=== PATIENT | male | born 1930 | race Caucasian/White ===

== ENCOUNTER 2016-06-17 09:20 | Outpatient (CLI) | payer MEDICARE, OTHER | END 2016-06-17 09:21 | disposition home or self-care (01) | DX: C61 Malignant neoplasm of prostate (principal) ==

== ENCOUNTER 2016-07-15 09:47 | Outpatient (CLI) | payer MEDICARE, OTHER | END 2016-07-15 09:48 | disposition home or self-care (01) | DX: C61 Malignant neoplasm of prostate (principal) ==

== ENCOUNTER 2016-08-29 10:46 | Outpatient (CLI) | payer MEDICARE, OTHER | END 2016-08-29 10:47 | disposition home or self-care (01) | LOC: LAB.WCP 10:46 | PROVIDERS: ATTEND Urology | DX: C61 Malignant neoplasm of prostate (principal) | CPT/HCPCS: 36415; 84153 ==

== ENCOUNTER 2016-09-28 08:00 | Outpatient (CLI) | payer MEDICARE, OTHER | END 2016-09-28 23:59 | LOC: LAB.WCP 08:00 | PROVIDERS: ATTEND Urology | DX: C61 Malignant neoplasm of prostate (principal) | CPT/HCPCS: 36415; 84153 ==

== ENCOUNTER 2017-01-04 08:00 | Outpatient (CLI) | payer MEDICARE, OTHER | END 2017-01-04 08:01 | disposition home or self-care (01) | LOC: LAB.WCP 08:00 | PROVIDERS: ATTEND Urology | DX: C61 Malignant neoplasm of prostate (principal) | CPT/HCPCS: 36415; 84153 ==

== ENCOUNTER 2017-04-06 10:24 | Outpatient (CLI) | payer MEDICARE, OTHER ==
[2017-04-06 13:57] LABS: BASOPHILS # (AUTO) 0.1 10^3/uL (0.0-0.1); BASOPHILS % (AUTO) 0.9 %; EOSINOPHILS # (AUTO) 0.2 10^3/uL (0.0-0.7); HCT - HEMATOCRIT 40.3 % (42.0-52.0); HGB - HEMOGLOBIN 13.5 g/dL (14.0-18.0); LYMPHOCYTES % (AUTO) 18.4 %; MEAN CORPUSCULAR HGB CONC 33.6 g/dL (32.0-36.0); MEAN CORPUSCULAR VOLUME 95.3 fL (80.0-94.0); MEAN PLATELET VOLUME 9.7 fL (7.4-11.4); MONOCYTES # (AUTO) 0.6 10^3/uL (0.0-1.0); NEUTROPHILS # (AUTO) 3.8 10^3/uL (1.5-6.6); NEUTROPHILS % (AUTO) 67.7 %; NUCLEATED RED BLOOD CELLS AUTO 0.1 /100WBC; RED BLOOD COUNT 4.22 10^6/uL (4.70-6.10); RED CELL DISTRIBUTION WIDTH 14.2 % (12.0-15.0); UNCORRECTED WHITE BLOOD COUNT 5.7 x10^3/uL; WHITE BLOOD COUNT 5.7 x10^3/uL (4.8-10.8)
[2017-04-06 14:39] LABS: BILIRUBIN,TOTAL 0.6 mg/dL (0.2-1.0); BUN - BLOOD UREA NITROGEN 26 mg/dL (6-20); CARBON DIOXIDE - CO2 30 mmol/L (21-32); CHLORIDE 101 mmol/L (101-111); CHOL/HDL RATIO 1.8 (<5.0); CHOLESTEROL 148 mg/dL; CREATININE 0.8 mg/dL (0.6-1.2); GFR - MDRD 92 (>89); GLUCOSE 108 mg/dL (70-100); HDL CHOLESTEROL 81 mg/dL; LDL/HDL RATIO 0.7 (<3.6); POTASSIUM 4.3 mmol/L (3.5-5.0); SODIUM 139 mmol/L (135-145); TOTAL PROTEIN 8.5 g/dL (6.7-8.2); TRIGLYCERIDES 45 mg/dL; VLDL CHOLESTEROL 9 mg/dL
== END 2017-04-06 10:25 | disposition home or self-care (01) ==
LOC: LAB.WCP 10:24
PROVIDERS: ATTEND Family Medicine
DX: I51.7 Cardiomegaly (principal); I10 Essential (primary) hypertension; C61 Malignant neoplasm of prostate; I48.0 Paroxysmal atrial fibrillation; R73.9 Hyperglycemia, unspecified; E78.5 Hyperlipidemia, unspecified
CPT/HCPCS: 36415; 80053; 80061; 84153; 84443; 85025

== ENCOUNTER 2017-06-29 08:00 | Outpatient (CLI) | payer MEDICARE, OTHER | END 2017-06-29 08:01 | disposition home or self-care (01) | LOC: LAB.WCP 08:00 | PROVIDERS: ATTEND Urology | DX: Z12.5 Encounter for screening for malignant neoplasm of prostate (principal); C61 Malignant neoplasm of prostate | CPT/HCPCS: 36415; G0103; 84153 ==

== ENCOUNTER 2017-09-22 14:12 | Outpatient (CLI) | payer MEDICARE, OTHER | END 2017-09-22 14:13 | disposition home or self-care (01) | LOC: LAB 14:12 | PROVIDERS: ATTEND Family Medicine | DX: I50.9 Heart failure, unspecified (principal) | CPT/HCPCS: 36415; 83880 ==

== ENCOUNTER 2017-10-11 08:36 | Outpatient (CLI) | payer MEDICARE, OTHER | END 2017-10-11 08:37 | disposition home or self-care (01) | LOC: LAB 08:36 | PROVIDERS: ATTEND Family Medicine | DX: J44.1 Chronic obstructive pulmonary disease with (acute) exacerbation (principal); I50.9 Heart failure, unspecified; I48.0 Paroxysmal atrial fibrillation; I10 Essential (primary) hypertension; R73.9 Hyperglycemia, unspecified; E78.5 Hyperlipidemia, unspecified | CPT/HCPCS: 85610 ==

== ENCOUNTER 2017-10-25 08:00 | Outpatient (CLI) | payer MEDICARE, OTHER ==
[2017-10-25 19:33] LABS: HB2 TOTAL 13.9 g/dL; HEMOGLOBIN A1C 0.55 g/dL; HEMOGLOBIN A1C % 5.8 % (4.6-6.2)
[2017-10-25 19:38] LABS: ALBUMIN 3.8 g/dL (3.2-5.5); ALKALINE PHOSPHATASE 62 IU/L (42-121); ALT ALANINE AMINOTRANSFERASE 23 IU/L (10-60); AST ASPARTATE AMINOTRANSFERASE 36 IU/L (10-42); BILIRUBIN,TOTAL 0.8 mg/dL (0.2-1.0); BUN - BLOOD UREA NITROGEN 23 mg/dL (6-20); CALCIUM 9.6 mg/dL (8.5-10.3); CARBON DIOXIDE - CO2 29 mmol/L (21-32); CHLORIDE 99 mmol/L (101-111); CHOL/HDL RATIO 1.9 (<5.0); CHOLESTEROL 142 mg/dL; GFR - MDRD 71 (>89); GLUCOSE 104 mg/dL (70-100); HDL CHOLESTEROL 74 mg/dL; LDL CHOLESTEROL,CALCULATED 53 mg/dL; LDL/HDL RATIO 0.7 (<3.6); SODIUM 137 mmol/L (135-145); TOTAL PROTEIN 7.6 g/dL (6.7-8.2); VLDL CHOLESTEROL 15 mg/dL
== END 2017-10-25 08:01 | disposition home or self-care (01) ==
LOC: LAB.WCP 08:00
PROVIDERS: ATTEND Family Medicine
DX: J44.1 Chronic obstructive pulmonary disease with (acute) exacerbation (principal); R73.9 Hyperglycemia, unspecified; I11.0 Hypertensive heart disease with heart failure; I50.9 Heart failure, unspecified; I48.0 Paroxysmal atrial fibrillation; E78.5 Hyperlipidemia, unspecified
CPT/HCPCS: 36415; 80053; 80061; 83036; 83721; 83880

== ENCOUNTER 2017-11-08 20:37 | Outpatient (CLI) | payer MEDICARE, OTHER | END 2017-11-08 20:38 | disposition home or self-care (01) | LOC: LAB.WCP 20:37 | PROVIDERS: ATTEND Urology | DX: C61 Malignant neoplasm of prostate (principal) | CPT/HCPCS: 36415; 84153 ==

== ENCOUNTER 2017-12-05 09:40 | Outpatient (CLI) | payer MEDICARE, OTHER ==
--- NOTE | 2017-12-05 11:54 | Ultrasound Report ---
Procedure Date: 12/05/2017 Accession Number: [id number] / [id number] Procedure: US - Duplex Lwr Ext Arterial Bilat CPT Code: FULL RESULT: EXAM: BILATERAL LOWER EXTREMITY ARTERIAL DOPPLER ULTRASOUND EXAM DATE: 12/05/2017 11:12 AM. CLINICAL HISTORY: Peripheral vascular disease. Leg cramping COMPARISON: None. TECHNIQUE: Real-time sonographic vascular imaging was performed by the press hand supervisor, utilizing color-flow, Doppler flow, and spectral analysis. Multiple patient financial representative static images were saved for review. FINDINGS: Right Lower Extremity: AIR BRAKE MECHANIC: PSV 106 cm/sec, triphasic waveform. PSFA: PSV 90 cm/sec, biphasic waveform. MSFA: PSV 91 cm/sec, biphasic waveform. DSFA: PSV 39 cm/sec, biphasic waveform. PFA: PSV 46 cm/sec, biphasic waveform. POP: PSV 31 cm/sec, biphasic waveform. DEVANG: PSV 83 cm/sec, biphasic waveform. RESEARCH PROFESSOR: PSV 40 cm/sec, biphasic waveform. PER: PSV 24 cm/sec, biphasic waveform. DPA: PSV 43 cm/sec, biphasic waveform. Left Lower Extremity: AIR BRAKE MECHANIC: PSV 104 cm/sec, triphasic waveform. PSFA: PSV 71 cm/sec, biphasic waveform. MSFA: PSV 85 cm/sec, biphasic waveform. DSFA: PSV 42 cm/sec, biphasic waveform. PFA: PSV 62 cm/sec, monophasic waveform. POP: PSV 30 cm/sec, biphasic waveform. DEVANG: PSV 26 cm/sec, biphasic waveform. RESEARCH PROFESSOR: PSV 67 cm/sec, biphasic waveform. PER: PSV 54 cm/sec, biphasic waveform. DPA: PSV 27 cm/sec, biphasic waveform. IMPRESSION: No flow-limiting stenosis in either lower extremity arterial system. RADIA
== END 2017-12-05 09:41 | disposition home or self-care (01) ==
LOC: DI 09:40
PROVIDERS: ATTEND Family Medicine
DX: I73.9 Peripheral vascular disease, unspecified (principal)
CPT/HCPCS: 93925

== ENCOUNTER 2017-12-06 14:37 | Emergency (ER) | payer MEDICARE, OTHER ==
[2017-12-06 15:10] LABS: BASOPHILS # (AUTO) 0.1 10^3/uL (0.0-0.1); BASOPHILS % (AUTO) 0.8 %; EOSINOPHILS # (AUTO) 0.1 10^3/uL (0.0-0.7); EOSINOPHILS % (AUTO) 1.4 %; HGB - HEMOGLOBIN 12.3 g/dL (14.0-18.0); LYMPHOCYTES # (AUTO) 0.7 10^3/uL (1.5-3.5); LYMPHOCYTES % (AUTO) 10.5 %; MEAN CORPUSCULAR HEMOGLOBIN 31.7 pg (27.0-31.0); MEAN CORPUSCULAR HGB CONC 33.3 g/dL (32.0-36.0); MEAN CORPUSCULAR VOLUME 95.3 fL (80.0-94.0); MEAN PLATELET VOLUME 8.8 fL (7.4-11.4); MONOCYTES # (AUTO) 0.5 10^3/uL (0.0-1.0); MONOCYTES % (AUTO) 6.9 %; NEUTROPHILS # (AUTO) 5.6 10^3/uL (1.5-6.6); NEUTROPHILS % (AUTO) 80.4 %; PLT - PLATELET COUNT 226 10^3/uL (130-450); RED BLOOD COUNT 3.89 10^6/uL (4.70-6.10); RED CELL DISTRIBUTION WIDTH 15.1 % (12.0-15.0)
[2017-12-06 15:15] LABS: BILIRUBIN,URINE NEGATIVE (NEGATIVE); GLUCOSE, URINE (UA) NEGATIVE (NEGATIVE); KETONES,URINE (UA) NEGATIVE (NEGATIVE); LEUKOCYTE ESTERASE, URINE NEGATIVE (NEGATIVE); NITRITE,URINE NEGATIVE (NEGATIVE); OCCULT BLOOD,URINE NEGATIVE (NEGATIVE); PH,URINE 6.5 PH (5.0-7.5); PROTEIN,URINE TRACE mg/dL (NEGATIVE); UROBILINOGEN,URINE 0.2 (NORMAL) E.U./dL (NORMAL)
[2017-12-06 15:21] LABS: ALBUMIN 4.2 g/dL (3.2-5.5); ALBUMIN/GLOBULIN RATIO 1.1 (1.0-2.2); CALCIUM 9.5 mg/dL (8.5-10.3); TOTAL PROTEIN 7.9 g/dL (6.7-8.2)
[2017-12-06 15:23] LABS: CLARITY,URINE CLEAR (CLEAR)
--- NOTE | 2017-12-06 17:50 | ED Physician Documentation ---
PD HPI ABD PAIN - Stated complaint Stated Complaint: ABD PX/VOMITING - Chief complaint Chief Complaint: Abd Pain - History obtained from History obtained from: Patient - History of Present Illness Timing - onset: How many hours ago (2), Today Timing - duration: Hours (2) Timing - details: Abrupt onset, Still present (though improved a lot from the peak of the pain. Still some pain though.) Quality: Cramping, Aching, Pain Location: All over / everywhere, Periumbilical Radiation: No: Chest, Lower back Improved by: Position. No: Vomiting Worsened by: Moving, Position, Palpation. No: Breathing Associated symptoms: Nausea, Vomiting, Loss of appetite. No: Fever, Hematemesis , Diarrhea, Constipation, Hematochezia, Chest pain, Near syncope / syncope Similar symptoms before: Has not had sx before Recently seen: Not recently seen Review of Systems Constitutional: denies: Fever, Chills Nose: denies: Rhinorrhea / runny nose, Congestion Throat: denies: Sore throat Cardiac: denies: Chest pain / pressure, Palpitations Respiratory: denies: Dyspnea, Cough GI: reports: Abdominal Pain, Nausea, Vomiting. denies: Abdominal Swelling, Diarrhea : denies: Dysuria, Frequency, Discharge Skin: denies: Rash, Lesions Neurologic: reports: Generalized weakness. denies: Focal weakness, Numbness, Near syncope, Altered mental status PD PAST MEDICAL HISTORY - Past Medical History Past Medical History: Yes Cardiovascular: Hypertension, Atrial fibrillation Respiratory: None Neuro: TIA Musculoskeletal: Osteoarthritis, Osteoporosis, Fatigue, Chronic back pain - Past Surgical History Past Surgical History: Yes Ortho: Hip replacement, Spine surgery - Present Medications Home Medications: Ambulatory Orders Medication Instructions Recorded Confirmed Bicalutamide 12/06/17 Cephalexin [Keflex] 500 mg PO TID #15 capsule 12/06/17 Leuprolide [Lupron] 7.5 mg IM 12/06/17 Lisinopril 12/06/17 Metronidazole [Flagyl] 500 mg PO BID #10 tablet 12/06/17 Ondansetron Odt [Zofran] 4 mg TL Q6H PRN #15 tablet 12/06/17 Senna [Senokot] 12/06/17 12/06/17 Simvastatin 12/06/17 Warfarin [Coumadin] 2.5 mg PO 1400 12/06/17 12/06/17 hydroCHLOROthiazide 25 mg PO 12/06/17 [Hydrochlorothiazide] - Allergies Allergies/Adverse Reactions: Allergies Allergy/AdvReac Type Severity Reaction Status Date / Time No Known Drug Allergies Allergy Verified 12/06/17 14:46 - Social History Does the pt smoke?: Yes Smoking Status: Current every day smoker Does the pt drink ETOH?: No Does the pt have substance abuse?: No - Family History Family history: reports: Non contributory - POLST Patient has POLST: Yes PD ED PE NORMAL - Vitals Vital signs reviewed: Yes - General General: Alert and oriented X 3, Well developed/nourished, Other (he appears in just mild discomfort at time I see him. ) - HEENT HEENT: Moist mucous membranes, Pharynx benign - Neck Neck: Supple, no meningeal sign, No adenopathy - Cardiac Cardiac: RRR, No murmur - Respiratory Respiratory: Clear bilaterally - Abdomen Abdomen: Normal bowel sounds, Soft, Non distended, No organomegaly, Other (no hernias. He has some mild tenderness nonfocally in mid abdomen. No percussion nor rebound tenderness. ) - Male Male : Deferred - Rectal Rectal: Deferred - Back Back: No CVA TTP - Derm Derm: Normal color, Warm and dry, No rash - Extremities Extremities: No deformity, No tenderness to palpate, Normal ROM s pain, No edema , No calf tenderness / cord - Neuro Neuro: Alert and oriented X 3, No motor deficit, Normal speech Results - Vitals Vitals: Vital Signs - 24 hr 12/06/17 12/06/17 12/06/17 14:42 17:10 18:37 Temperature 35.8 C L Heart Rate 64 59 L 77 Respiratory 20 18 16 Rate Blood Pressure 146/74 H 152/82 H 136/88 H O2 Saturation 98 98 92 12/06/17 12/06/17 12/06/17 20:16 22:18 22:48 Temperature 37 C 37.1 C Heart Rate 70 110 H 68 Respiratory 14 20 17 Rate Blood Pressure 115/70 144/82 H 122/84 H O2 Saturation 94 97 94 Oxygen O2 Source Room air - Labs Labs: Laboratory Tests 12/06/17 12/06/17 12/06/17 14:55 15:00 15:00 WBC 7.0 RBC 3.89 L Hgb 12.3 L Hct 37.1 L MCV 95.3 H MCH 31.7 H MCHC 33.3 RDW 15.1 H Plt Count 226 MPV 8.8 Neut # (Auto) 5.6 Lymph # (Auto) 0.7 L [place] # (Auto) 0.5 Eos # (Auto) 0.1 Baso # (Auto) 0.1 Absolute Nucleated RBC 0.00 Nucleated RBC % 0.1 PT INR Sodium 137 Potassium 4.3 Chloride 100 L Carbon Dioxide 28 Anion Gap 9.0 BUN 22 H Creatinine 1.0 Estimated GFR (MDRD) 71 L Glucose 141 H Lactic Acid Calcium 9.5 Total Bilirubin 1.0 AST 32 ALT 20 Alkaline Phosphatase 66 Total Protein 7.9 Albumin 4.2 Globulin 3.7 Albumin/Globulin Ratio 1.1 Lipase 39 Urine Color YELLOW Urine Clarity CLEAR Urine pH 6.5 Ur Specific [place] 1.025 Urine Protein TRACE Urine Glucose (UA) NEGATIVE Urine Ketones NEGATIVE Urine Occult Blood NEGATIVE Urine Nitrite NEGATIVE Urine Bilirubin NEGATIVE Urine Urobilinogen 0.2 (NORMAL) Ur Leukocyte Esterase NEGATIVE Ur Microscopic Review NOT INDICATED Urine Culture Comments NOT INDICATED 12/06/17 12/06/17 15:00 20:48 WBC RBC Hgb Hct MCV MCH MCHC RDW Plt Count MPV Neut # (Auto) Lymph # (Auto) [place] # (Auto) Eos # (Auto) Baso # (Auto) Absolute Nucleated RBC Nucleated RBC % PT 23.0 H INR 2.1 H Sodium Potassium Chloride Carbon Dioxide Anion Gap BUN Creatinine Estimated GFR (MDRD) Glucose Lactic Acid 0.6 Calcium Total Bilirubin AST ALT Alkaline Phosphatase Total Protein Albumin Globulin Albumin/Globulin Ratio Lipase Urine Color Urine Clarity Urine pH Ur Specific [place] Urine Protein Urine Glucose (UA) Urine Ketones Urine Occult Blood Urine Nitrite Urine Bilirubin Urine Urobilinogen Ur Leukocyte Esterase Ur Microscopic Review Urine Culture Comments - Rads (name of study) Abd/pelvic CT Radiology: Prelim report reviewed (segment of small intestine with wall thickening and inflammation. Concern for ischemic colitis. No free fluid. No other cause of pain seen (discussed with Rad on phone).), Discussed with rads, EMP read contemporaneously PD MEDICAL DECISION MAKING - ED course Complexity details: reviewed results (The CT scan showed segment of bowel with wall thickening. There is no free fluid noted. His lactate is normal. His white count is normal as well.), re-evaluated patient (He is feeling much improved with just some IV fluids and simple medication. Repeat abdominal exam is not tender and he states his pain as diminished and gone away.), considered differential (The patient does have history of atrial fibrillation and even though he is on Coumadin, the abrupt onset of central abdominal pain with nausea and vomiting is concerning for ischemic bowel but also consider bowel obstruction, gallbladder colic, renal colic or other concerns. We will get CT of the abdomen as well as labs to evaluate for ischemia and sepsis.), d/w patient, d/w [employer] consultant (I consulted hospitalist Dr. lezama because is concerned with the patient's age and presentation and the appropriateness of the pain associated with the CT scan findings of some inflammation of the bowel wall that he may have had an episode of ischemic bowel. Though he is improving I feel he could be at risk for worsening symptoms. She came to the emergency room to evaluate the patient and after discussion with the patient that a had shared decision of going home rather than being and admitted. The patient states he is feeling better at this time and will return if he has symptoms again.) - Sepsis Event Vital Signs: Vital Signs - 24 hr 12/06/17 12/06/17 12/06/17 14:42 17:10 18:37 Temperature 35.8 C L Heart Rate 64 59 L 77 Respiratory 20 18 16 Rate Blood Pressure 146/74 H 152/82 H 136/88 H O2 Saturation 98 98 92 12/06/17 12/06/17 12/06/17 20:16 22:18 22:48 Temperature 37 C 37.1 C Heart Rate 70 110 H 68 Respiratory 14 20 17 Rate Blood Pressure 115/70 144/82 H 122/84 H O2 Saturation 94 97 94 Oxygen O2 Source Room air Departure - Departure Disposition: 01 Home, Self Care Clinical Impression: Colitis, acute Abdominal pain Qualifiers: Abdominal location: generalized Qualified Code(s): R10.84 - Generalized abdominal pain Condition: Stable Record reviewed to determine appropriate education?: Yes Follow-Up: Omar Sarmiento MD [Primary Care Provider] - Prescriptions: Cephalexin [Keflex] 500 mg PO TID #15 capsule Metronidazole [Flagyl] 500 mg PO BID #10 tablet Ondansetron Odt [Zofran] 4 mg TL Q6H PRN #15 tablet PRN Reason: Nausea / Vomiting Comments: Frequent fluids. [place] food only for the next day or 2. You do have inflammation of the colon (colitis). We typically will treat this with antibiotics presuming some infection. Take cephalexin and metronidazole as prescribed. Use Tylenol if needed for pains. The antibiotics may interfere with your Coumadin and you should get that rechecked in 2-3 days. Call your primary care tomorrow morning for a follow-up appointment in 2 days for recheck anyway. Return sooner if worsening pain, fevers, vomiting, bloody stool or other concerns.
[2017-12-06] MEDS ORDERED: MORPHINE 10 MG/ML VIAL IVP STA (18:06)
[2017-12-06] MEDS ORDERED: ONDANSETRON 4 MG/2 ML VIAL IVP STA (18:06)
[2017-12-06] MEDS ORDERED: SODIUM CHLORIDE 0.9% 1,000 ML IV ONE (18:06)
[2017-12-06] MEDS ORDERED: IOPAMIDOL-300 100 ML VIAL ONE (18:24)
[2017-12-06] MEDS ORDERED: IOPAMIDOL-300 100 ML VIAL IVP ONE (19:07)
--- NOTE | 2017-12-06 20:37 | CT Report ---
Procedure Date: 12/06/2017 Accession Number: [id number] / [id number] Procedure: CT - Abdomen/Pelvis W/ CPT Code: FULL RESULT: EXAM: CT ABDOMEN AND PELVIS EXAM DATE: 12/06/2017 07:05 PM. CLINICAL HISTORY: Abrupt abdominal pain this afternoon. COMPARISONS: None. TECHNIQUE: Routine helical CT imaging was performed through the abdomen and pelvis. IV contrast: 100 mL Isovue 300. Enteric contrast: No. Reconstructions: Coronal and sagittal. In accordance with CT protocol optimization, one or more of the following dose reduction techniques were utilized for this exam: automated exposure control, adjustment of mA and/or KV based on patient size, or use of iterative reconstructive technique. FINDINGS: Lung Bases: Mild dependent atelectasis. No pleural or pericardial effusions. Extensive coronary artery disease. Mild to moderate cardiac enlargement. Small hiatal hernia noted. liver: Normal. No masses. Gallbladder/Bile Ducts: Unremarkable. Spleen: Normal. Pancreas: Mild pancreatic ductal prominence. No mass, calcification, atrophy or peripancreatic inflammation. Adrenal Glands: Diffuse nodular thickening throughout both adrenal glands, worse on the left than on the right. Kidneys: No mass, stones or hydronephrosis. Inferior left renal scarring. Small renal cysts are noted. Peritoneal Cavity/Bowel: Small amount of ascites is present in the abdomen and pelvis. Mild mesenteric stranding is also noted in the small bowel mesentery. No pneumoperitoneum, pneumatosis or portal venous gas. Normal stomach. Small paraesophageal hernia is noted. Large 3 cm duodenal diverticulum predominantly filled by air. There is a segment of mid to proximal small bowel demonstrating moderate wall thickening without evidence of pneumatosis. Mild mesenteric edema noted. Reference images are series 3, images 24-53. Colonic diverticulosis is present without dilated large bowel or acute inflammation of the large bowel. Appendix not seen. No right lower quadrant inflammation. Pelvic Organs: Normal bladder. Patient is status post prostatectomy. Multiple surgical clips obscure portions of the pelvis. Significant streak artifact is also present due to the right hip arthroplasty. No definite pelvic adenopathy, mass or collection. Trace free fluid is noted in the pelvis. Vasculature: Normal IVC. Diffuse atheromatous calcified plaques are present throughout the non-aneurysmal abdominal aorta and branch vessels. High-grade stenosis is present at the left renal artery and celiac axis origin. Bones: No osteoblastic or osteolytic lesions are noted. Multilevel degenerative disk disease and facet arthropathy is noted.32 degrees of convex to the left curvature of the mid lumbar spine. Grade 1 L4 on L5 anterolisthesis. There is interbody and posterior fusion at L4-L5. Status post right hip arthroplasty. other: None. IMPRESSION: 1. Cluster of mid to proximal small bowel loops demonstrating moderate wall thickening and mesenteric edema. No jenna obstruction. No evidence of pneumatosis or portal venous gas. The thick-walled appearance raises concern for ischemia. Correlate with laboratory examinations and clinical presentation. Enteritis is also on the differential. 2. Diverticulosis without inflammation or obstruction. 3. Cardiac enlargement with extensive coronary artery disease. RADIA The above findings were discussed with Blanco Mesa by Dr. Yasemin Cox at 20:36 hrs on 12/06/17.
[2017-12-06 21:13] LABS: INR 2.1 (0.8-1.2)
[2017-12-06] MEDS ORDERED: cefTRIAXone 1 GM in SODIUM CHLORIDE 0.9% MINIBAG 100 ML IV STA (21:51)
[2017-12-06] MEDS ORDERED: metroNIDAZOLE 250 MG TABLET PO STA (21:52)
[2017-12-07 00:16] VITALS: BP 148/85
--- NOTE | 2017-12-07 04:01 | CONSULTATION NOTE ---
DATE OF SERVICE: 12/06/2017 Physician: Jennifer Mendoza MD PRIMARY CARE PHYSICIAN: Anna Beyer MD CHIEF COMPLAINT: Abdominal pain. HISTORY OF PRESENT ILLNESS AND ER COURSE: Patient is a pleasant 87-year-old white male with multiple past medical problems including atrial fibrillation on therapeutic anticoagulation and peripheral vascular disease who presented to [facility] ER with a sudden onset of abdominal discomfort. Patient was a good historian. He reported that around noontime on 12/06/2017, he somewhat suddenly developed a central mid abdominal pain, which was strong, intense, sharp discomfort. It was associated with nausea and with an episode of emesis. Patient reported his last bowel movement was the day before, it was a small amount but appeared normal without blood. Last time the patient took antibiotic was about 4 months ago for a skin condition. He does not have any history of bowel problems. Never experienced similar abdominal discomfort in the past. Denied fever. Upon presentation to the ER, patient was hemodynamically stable. He underwent CT scan of the abdomen, which showed colitis with bowel edema. There was no bowel obstruction and other than colitis , no abnormality was shown. Laboratories were unremarkable including normal white blood cell count and normal liver function tests. Lactic acid was normal at 0.6. At the ER, patient received 1 dose of morphine, after which his pain almost completely resolved. He received a dose of Flagyl and ceftriaxone as well. I was asked by the ER physician, Dr. Blanco Mesa, to evaluate this patient for possible hospital admission for colitis. When I discussed the case, the patient did not offer any red flags and we cannot say that he failed outpatient treatment. He does have multiple medical problems and the possibility of ischemic colitis was entertained; however, lactic acid was normal and patient is already anticoagulated with therapeutic INR. Other issue was that the patient had significant pain; however, when I saw him, he had a benign abdomen, good bowel tones and no longer complained of abdominal pain. Given this patient 's normal laboratories, hemodynamic stability, his family support and reasonably good functional status, I felt it was reasonable to send him home and try treating colitis as an outpatient. I discussed with the patient and with his certain red flags which would require hospital admission such as fever, blood in his stool, worsening abdominal pain, or developing nausea or vomiting. Patient and were given a choice for observation versus going home and they decided that they would prefer to be discharged from the ER and pursue outpatient treatment, only get admitted if any complications develop. Further, it was discussed that as the patient takes Coumadin, his INR will need to be checked in a couple of days. He will be on antibiotics and that will affect anticoagulation. Subsequently, I discussed the case with Dr. Mesa. I recommended oral antibiotics, outpatient INR check and reevaluation by the primary care physician. Thereby, at this point, I do not recommend hospital admission. PAST MEDICAL HISTORY 1. Hypertension. 2. Atrial fibrillation, on Coumadin anticoagulation. 3. Dyslipidemia. 4. Prostate cancer, on Lupron. 5. Osteoarthritis. 6. COPD/cigarette smoking. 7. Peripheral vascular disease. 8. History of rib fracture. 9. History of skin cancer. OUTPATIENT MEDICATIONS: Reviewed per electronic medical record. FAMILY HISTORY: No history of bowel pathology. SOCIAL HISTORY: Patient smokes cigarettes, lives with his , ambulates with a cane. REVIEW OF SYSTEMS: Please see pertinent positives listed above at history of present illness. Patient did not report additional complaint on the 12-point review. PHYSICAL EXAMINATION VITAL SIGNS: Temperature 37.1, heart rate 70, blood pressure 130/80, respiratory rate 14, oxygen saturation 97% on room air. GENERAL: The patient is a well-developed, elderly male who was not in distress. SKIN: Without jaundice or pallor. CARDIOVASCULAR: S1, S2. Regular. Harsh systolic murmur best heard at the second parasternal auscultation point. RESPIRATORY: No wheezes, no crackles. Good air entry throughout. MUSCULOSKELETAL: With a nontender hard density above the left anterior lower rib cage. LYMPHATICS: No lymphedema. ABDOMEN: Bowel tones present. Abdomen was distended, but soft, nontender. No guarding, no rebound. NEUROLOGIC: Alert, oriented, nonfocal. PSYCHIATRIC: Cooperative. ASSESSMENT AND PLAN: Patient is an 87-year-old male who presented with abdominal pain and was diagnosed with colitis. Although the CT scan described somewhat extensive colitis with bowel edema, there was no additional complication. Patient was hemodynamically stable with stable vital signs. He is therapeutically anticoagulated for atrial fibrillation and his INR was 2.1. He did not have elevated white blood cell count or other laboratory abnormality. Patient overall improved during the ER stay and his symptoms resolved. He is able to tolerate oral intake, has good outpatient followup and understanding of his condition. Therefore, I recommend discharging this patient from the ER, starting outpatient antibiotics and return if his symptoms would get worse or any complication would develop. DISCHARGE RECOMMENDATIONS 1. Antibiotics which will be prescribed by the ER provider, Dr. Mesa. I recommended ciprofloxacin and Flagyl. 2. Clear liquid diet. 3. Followup for INR check 2 days following discharge and subsequently followup with primary care physician. 4. Return precautions. Return to the ER if he becomes febrile, if sees blood in the stool or if symptoms are worse with abdominal pain, nausea or vomiting. Time spent with the consultation was 50 minutes. TD: 12/06/2017 23:54 DI
== END 2017-12-07 00:25 | disposition home or self-care (01) ==
LOC: ED 14:37
DX: R10.84 Generalized abdominal pain (principal); I48.91 Unspecified atrial fibrillation; I10 Essential (primary) hypertension; C61 Malignant neoplasm of prostate; I73.9 Peripheral vascular disease, unspecified; E78.5 Hyperlipidemia, unspecified; F17.210 Nicotine dependence, cigarettes, uncomplicated; Z96.649 Presence of unspecified artificial hip joint; Z86.73 Personal history of transient ischemic attack (TIA), and cerebral infarction without residual deficits; Z79.01 Long term (current) use of anticoagulants
CPT/HCPCS: 36415; 74177; 80053; 81003; 83605; 83690; 85025; 85610; 96361; 96365; 96375; 99283; 99284; A9270; Q9967; 81001; 87086

== ENCOUNTER 2018-01-17 08:50 | Outpatient (CLI) | payer MEDICARE, OTHER ==
[2018-01-17 13:11] LABS: BASOPHILS % (AUTO) 0.8 %; EOSINOPHILS # (AUTO) 0.1 10^3/uL (0.0-0.7); HGB - HEMOGLOBIN 12.4 g/dL (14.0-18.0); LYMPHOCYTES # (AUTO) 1.3 10^3/uL (1.5-3.5); LYMPHOCYTES % (AUTO) 26.8 %; MEAN CORPUSCULAR HEMOGLOBIN 31.2 pg (27.0-31.0); MEAN CORPUSCULAR HGB CONC 33.5 g/dL (32.0-36.0); MEAN CORPUSCULAR VOLUME 93.4 fL (80.0-94.0); MEAN PLATELET VOLUME 9.2 fL (7.4-11.4); MONOCYTES # (AUTO) 0.6 10^3/uL (0.0-1.0); MONOCYTES % (AUTO) 12.8 %; NEUTROPHILS # (AUTO) 2.9 10^3/uL (1.5-6.6); NEUTROPHILS % (AUTO) 57.6 %; PLT - PLATELET COUNT 218 10^3/uL (130-450); RED BLOOD COUNT 3.96 10^6/uL (4.70-6.10); RED CELL DISTRIBUTION WIDTH 15.4 % (12.0-15.0)
[2018-01-17 13:18] LABS: CHOL/HDL RATIO 2.5 (<5.0); CHOLESTEROL 151 mg/dL; HDL CHOLESTEROL 61 mg/dL; LDL CHOLESTEROL,CALCULATED 70 mg/dL; LDL/HDL RATIO 1.1 (<3.6); VLDL CHOLESTEROL 20 mg/dL
== END 2018-01-17 08:51 | disposition home or self-care (01) ==
LOC: LAB.WCP 08:50
PROVIDERS: ATTEND Family Medicine
DX: E78.5 Hyperlipidemia, unspecified (principal); I48.0 Paroxysmal atrial fibrillation; I10 Essential (primary) hypertension
CPT/HCPCS: 36415; 80061; 83721; 85025

== ENCOUNTER 2018-04-30 10:16 | Outpatient (CLI) | payer MEDICARE, OTHER | END 2018-04-30 23:59 | disposition home or self-care (01) | LOC: LAB.WCP 10:16 | PROVIDERS: ATTEND Urology | DX: Z85.46 Personal history of malignant neoplasm of prostate (principal) | CPT/HCPCS: 36415; 84153 ==

== ENCOUNTER 2018-07-09 08:00 | Outpatient (CLI) | payer MEDICARE, OTHER | END 2018-07-09 23:59 | disposition home or self-care (01) | LOC: LAB.WCP 08:00 | PROVIDERS: ATTEND Family Medicine | DX: I48.91 Unspecified atrial fibrillation (principal); Z79.01 Long term (current) use of anticoagulants ==

== ENCOUNTER 2018-08-03 08:00 | Outpatient (CLI) | payer MEDICARE, OTHER ==
[2018-08-03 13:45] LABS: BASOPHILS # (AUTO) 0.1 10^3/uL (0.0-0.1); BASOPHILS % (AUTO) 0.9 %; EOSINOPHILS # (AUTO) 0.2 10^3/uL (0.0-0.7); EOSINOPHILS % (AUTO) 2.6 %; HGB - HEMOGLOBIN 12.2 g/dL (14.0-18.0); LYMPHOCYTES # (AUTO) 0.9 10^3/uL (1.5-3.5); LYMPHOCYTES % (AUTO) 13.8 %; MEAN CORPUSCULAR HEMOGLOBIN 30.5 pg (27.0-31.0); MEAN CORPUSCULAR HGB CONC 32.9 g/dL (32.0-36.0); MEAN CORPUSCULAR VOLUME 92.8 fL (80.0-94.0); MEAN PLATELET VOLUME 9.5 fL (7.4-11.4); MONOCYTES # (AUTO) 0.7 10^3/uL (0.0-1.0); MONOCYTES % (AUTO) 10.6 %; NEUTROPHILS # (AUTO) 4.5 10^3/uL (1.5-6.6); NEUTROPHILS % (AUTO) 72.1 %; PLT - PLATELET COUNT 216 10^3/uL (130-450); RED BLOOD COUNT 3.99 10^6/uL (4.70-6.10); RED CELL DISTRIBUTION WIDTH 14.9 % (12.0-15.0); WHITE BLOOD COUNT 6.3 x10^3/uL (4.8-10.8)
[2018-08-03 13:59] LABS: ALBUMIN 4.1 g/dL (3.2-5.5); ALBUMIN/GLOBULIN RATIO 1.1 (1.0-2.2); ALKALINE PHOSPHATASE 83 IU/L (42-121); ALT ALANINE AMINOTRANSFERASE 16 IU/L (10-60); AST ASPARTATE AMINOTRANSFERASE 26 IU/L (10-42); BILIRUBIN,TOTAL 0.7 mg/dL (0.2-1.0); BUN - BLOOD UREA NITROGEN 49 mg/dL (6-20); CALCIUM 9.4 mg/dL (8.5-10.3); CARBON DIOXIDE - CO2 28 mmol/L (21-32); CHLORIDE 99 mmol/L (101-111); CHOL/HDL RATIO 2.5 (<5.0); CHOLESTEROL 157 mg/dL; GFR - MDRD 71 (>89); GLUCOSE 118 mg/dL (70-100); HDL CHOLESTEROL 64 mg/dL; LDL CHOLESTEROL,CALCULATED 84 mg/dL; LDL/HDL RATIO 1.3 (<3.6); SODIUM 136 mmol/L (135-145); TOTAL PROTEIN 7.9 g/dL (6.7-8.2); VLDL CHOLESTEROL 9 mg/dL
[2018-08-03 14:15] LABS: HB2 TOTAL 12.9 g/dL; HEMOGLOBIN A1C 0.58 g/dL; HEMOGLOBIN A1C % 6.3 % (4.6-6.2)
== END 2018-08-03 23:59 | disposition home or self-care (01) ==
LOC: LAB.WCP 08:00
PROVIDERS: ATTEND Family Medicine
DX: D64.9 Anemia, unspecified (principal); E78.5 Hyperlipidemia, unspecified; R73.9 Hyperglycemia, unspecified
CPT/HCPCS: 36415; 80053; 80061; 83036; 83721; 85025

== ENCOUNTER 2018-08-14 09:27 | Outpatient (CLI) | payer MEDICARE, OTHER ==
--- NOTE | 2018-08-15 07:52 | XRAY Report ---
Reason: WRIST PAIN,LEFT Procedure Date: 08/14/2018 Accession Number: [id number] / [id number] Procedure: WCP - Wrist 3 View LT CPT Code: FULL RESULT: EXAM: LEFT WRIST RADIOGRAPHY EXAM DATE: 08/14/2018 09:29 AM. CLINICAL HISTORY: Left wrist pain. COMPARISON: None. TECHNIQUE: 3 views. FINDINGS: Bones: No acute fracture or bony lesion. Mild degenerative spurring. No bony erosions. Joints: Mild joint space of the intercarpal and radiocarpal joint and the left first carpometacarpal joint. Marked degenerative change of the left fifth PIP joint. No dislocation. Soft Tissues: Normal. No soft tissue swelling. IMPRESSION: 1. Mild degenerative changes of the left wrist. RADIA
== END 2018-08-14 09:28 | disposition home or self-care (01) ==
LOC: DI.WCP 09:27
PROVIDERS: ATTEND Family Medicine
DX: M19.032 Primary osteoarthritis, left wrist (principal)

== ENCOUNTER 2018-08-14 09:28 | Outpatient (CLI) | payer MEDICARE, OTHER ==
--- NOTE | 2018-08-14 14:58 | XRAY Report ---
Reason: CONSTIPATION Procedure Date: 08/14/2018 Accession Number: [id number] / [id number] Procedure: WCP - Abdomen 1 View X-Ray CPT Code: 09963 FULL RESULT: EXAM: ABDOMEN RADIOGRAPHY EXAM DATE: 08/14/2018 09:25 AM. CLINICAL HISTORY: Constipation. COMPARISON: None. TECHNIQUE: 1 view. FINDINGS: Bowel Gas Pattern: Within normal limits. No dilated loops. Other: Pedicle screws overlie the lower lumbar spine. A right hip prosthesis is present. Numerous surgical clips overlie the pelvis. A moderate to severe thoracolumbar levoscoliosis noted. Diffuse osteopenia. IMPRESSION: Bowel gas pattern within normal limits. No bowel obstruction or constipation evident. RADIA
== END 2018-08-14 09:29 | disposition home or self-care (01) ==
LOC: DI.WCP 09:28
PROVIDERS: ATTEND Family Medicine
DX: K59.00 Constipation, unspecified (principal); M19.032 Primary osteoarthritis, left wrist
CPT/HCPCS: 74018

== ENCOUNTER 2018-11-20 08:00 | Outpatient (CLI) | payer MEDICARE, OTHER | END 2018-11-20 23:59 | disposition home or self-care (01) | LOC: LAB.WCP 08:00 | PROVIDERS: ATTEND Urology | DX: C61 Malignant neoplasm of prostate (principal) | CPT/HCPCS: 36415; 84153 ==

== ENCOUNTER 2018-12-05 08:00 | Outpatient (CLI) | payer MEDICARE, OTHER | END 2018-12-05 23:59 | disposition home or self-care (01) | LOC: LAB.WCP 08:00 | PROVIDERS: ATTEND Family Medicine | DX: I48.0 Paroxysmal atrial fibrillation (principal); Z79.01 Long term (current) use of anticoagulants ==

== ENCOUNTER 2019-01-09 13:13 | Outpatient (CLI) | payer MEDICARE, OTHER ==
[2019-01-09 18:30] LABS: BASOPHILS % (AUTO) 0.6 %; EOSINOPHILS # (AUTO) 0.1 10^3/uL (0.0-0.7); EOSINOPHILS % (AUTO) 1.8 %; HGB - HEMOGLOBIN 12.3 g/dL (14.0-18.0); LYMPHOCYTES % (AUTO) 15.4 %; MEAN CORPUSCULAR HEMOGLOBIN 29.9 pg (27.0-31.0); MEAN CORPUSCULAR HGB CONC 31.6 g/dL (32.0-36.0); MEAN CORPUSCULAR VOLUME 94.6 fL (80.0-94.0); MEAN PLATELET VOLUME 11.8 fL (7.4-11.4); MONOCYTES # (AUTO) 0.7 10^3/uL (0.0-1.0); MONOCYTES % (AUTO) 11.2 %; NEUTROPHILS # (AUTO) 4.6 10^3/uL (1.5-6.6); NEUTROPHILS % (AUTO) 70.7 %; PLT - PLATELET COUNT 228 10^3/uL (130-450); RED BLOOD COUNT 4.11 10^6/uL (4.70-6.10); RED CELL DISTRIBUTION WIDTH 16.2 % (12.0-15.0); WHITE BLOOD COUNT 6.5 x10^3/uL (4.8-10.8)
[2019-01-09 19:08] LABS: ALBUMIN 3.8 g/dL (3.2-5.5); ALBUMIN/GLOBULIN RATIO 0.9 (1.0-2.2); BILIRUBIN,TOTAL 0.5 mg/dL (0.2-1.0); CALCIUM 9.4 mg/dL (8.5-10.3); CREATININE 1.2 mg/dL (0.6-1.2)
== END 2019-01-09 23:59 | disposition home or self-care (01) ==
LOC: LAB.WCP 13:13
PROVIDERS: ATTEND Family Medicine
DX: R10.9 Unspecified abdominal pain (principal)
CPT/HCPCS: 36415; 80053; 83690; 85025

== ENCOUNTER 2019-01-15 09:56 | Outpatient (CLI) | payer MEDICARE, OTHER ==
[2019-01-15] MEDS ORDERED: IOVERSOL 320 100 ML VIAL IVP ONE ×2 (10:11→14:51)
[2019-01-15] MEDS ORDERED: IOVERSOL 320 50 ML VIAL ONE (10:11)
--- NOTE | 2019-01-15 12:41 | CT Report ---
Reason: ABDOMINAL PAIN Procedure Date: 01/15/2019 Accession Number: [id number] / [id number] Procedure: CT - Abdomen/Pelvis W CPT Code: FULL RESULT: EXAM: CT ABDOMEN AND PELVIS EXAM DATE: 01/15/2019 11:19 AM. CLINICAL HISTORY: Abdominal pain. COMPARISONS: ABDOMEN/PELVIS W/ 12/06/2017 6:47 PM. TECHNIQUE: Routine helical CT imaging was performed through the abdomen and pelvis. IV contrast: OPTI 320 100ML. Enteric contrast: No. Reconstructions: Coronal and sagittal. In accordance with CT protocol optimization, one or more of the following dose reduction techniques were utilized for this exam: automated exposure control, adjustment of mA and/or KV based on patient size, or use of iterative reconstructive technique. FINDINGS: Lung Bases: Moderate cardiac enlargement. Liver: Normal. No masses. Gallbladder/Bile Ducts: Unremarkable. Spleen: Normal. Pancreas: Normal. Adrenal Glands: Normal. Kidneys: Normal. No masses or hydronephrosis. Peritoneal Cavity/Bowel: No significant abnormality. No evidence of bowel obstruction or mass. The appendix is not definitely visualized, but there is no evidence of appendicitis. No evidence of diverticulitis. Pelvic Organs: Unremarkable bladder. Multiple surgical clips and right hip arthroplasty obscure fine detail of the pelvic base. There probably has been a previous prostatectomy. Vasculature: Generalized arterial calcification. No evidence of abdominal aortic aneurysm. Tortuous bilateral iliac arteries. Bones: Moderately severe S-shaped thoracolumbar scoliosis. Multilevel laminectomy and lower lumbar fusion. Other: None. IMPRESSION: No acute abnormality. No computed tomographic findings to explain abdominal pain. RADIA
[2019-01-15] MEDS ORDERED: IOVERSOL 320 50 ML VIAL PO ONE (14:51)
== END 2019-01-15 09:57 | disposition home or self-care (01) ==
LOC: DI 09:56
PROVIDERS: ATTEND Family Medicine
DX: R10.9 Unspecified abdominal pain (principal)
CPT/HCPCS: 74177; Q9967

== ENCOUNTER 2019-01-28 08:00 | Outpatient (CLI) | payer MEDICARE, OTHER | END 2019-01-28 23:59 | disposition home or self-care (01) | LOC: LAB.WCP 08:00 | PROVIDERS: ATTEND Family Medicine | DX: I48.0 Paroxysmal atrial fibrillation (principal); Z79.01 Long term (current) use of anticoagulants ==

== ENCOUNTER 2019-02-06 22:10 | Outpatient (CLI) | payer MEDICARE, OTHER | END 2019-02-06 22:11 | disposition critical access hospital (66) | LOC: EMS 22:10 | PROVIDERS: ATTEND Surgery | DX: R06.00 Dyspnea, unspecified (principal); R05 Cough | CPT/HCPCS: A0425; A0427 ==

== ENCOUNTER 2019-02-06 22:24 | Emergency (ER) | payer MEDICARE, OTHER ==
[2019-02-06] MEDS ORDERED: IPRATROPIUM/ALBUTEROL 3 ML NEB INH STA (22:31)
[2019-02-06] MEDS ORDERED: DEXAMETHASONE 10 MG/ML VIAL IVP STA (22:32)
[2019-02-06] MEDS ORDERED: cefTRIAXone 1 GM in SODIUM CHLORIDE 0.9% MINIBAG 100 ML IV STA (22:32)
[2019-02-06 22:53] LABS: BASOPHILS # (AUTO) 0.1 10^3/uL (0.0-0.1); BASOPHILS % (AUTO) 0.6 %; EOSINOPHILS # (AUTO) 0.1 10^3/uL (0.0-0.7); EOSINOPHILS % (AUTO) 0.4 %; HGB - HEMOGLOBIN 10.6 g/dL (14.0-18.0); LYMPHOCYTES # (AUTO) 0.6 10^3/uL (1.5-3.5); LYMPHOCYTES % (AUTO) 4.6 %; MEAN CORPUSCULAR HEMOGLOBIN 30.4 pg (27.0-31.0); MEAN CORPUSCULAR HGB CONC 32.1 g/dL (32.0-36.0); MEAN CORPUSCULAR VOLUME 94.6 fL (80.0-94.0); MEAN PLATELET VOLUME 9.5 fL (7.4-11.4); MONOCYTES # (AUTO) 0.6 10^3/uL (0.0-1.0); MONOCYTES % (AUTO) 4.8 %; NEUTROPHILS # (AUTO) 10.7 10^3/uL (1.5-6.6); PLT - PLATELET COUNT 201 10^3/uL (130-450); RED BLOOD COUNT 3.49 10^6/uL (4.70-6.10); RED CELL DISTRIBUTION WIDTH 15.3 % (12.0-15.0); WHITE BLOOD COUNT 12.1 x10^3/uL (4.8-10.8)
--- NOTE | 2019-02-06 23:04 | XRAY Report ---
Reason: dyspnea Procedure Date: 02/06/2019 Accession Number: [id number] / [id number] Procedure: XR - Chest 1 View X-Ray CPT Code: 52658 FULL RESULT: EXAM: CHEST RADIOGRAPHY EXAM DATE: 02/06/2019 10:50 PM. CLINICAL HISTORY: Dyspnea. COMPARISON: CHEST 2 VIEW PA/LAT 09/18/2017 11:21 AM. TECHNIQUE: 1 view. FINDINGS: Lungs/Pleura: Mild pulmonary vascular congestion and interstitial prominence in the lungs. Probable basilar atelectasis. No significant pleural effusion or pneumothorax. Mediastinum: Stable enlargement of cardiac silhouette. Atherosclerosis at aortic arch. Other: Stable healed right lateral fractures. Osseous degenerative changes. IMPRESSION: 1. Mild pulmonary vascular congestion and interstitial prominence in the lungs which may represent interstitial edema. Correlate clinically. 2. Probable mild basilar atelectasis. 3. Stable enlargement of cardiac silhouette. RADIA
[2019-02-06 23:06] LABS: ALBUMIN 3.2 g/dL (3.2-5.5); ALBUMIN/GLOBULIN RATIO 0.8 (1.0-2.2); BILIRUBIN,TOTAL 0.6 mg/dL (0.2-1.0); CREATININE 1.1 mg/dL (0.6-1.2); TOTAL PROTEIN 7.4 g/dL (6.7-8.2)
[2019-02-06] MEDS ORDERED: FUROSEMIDE 40 MG/4 ML VIAL IVP STA (23:24)
--- NOTE | 2019-02-06 23:26 | ED Physician Documentation ---
PD HPI DYSPNEA - Stated complaint Stated Complaint: DYSPNEA, COUGH - Chief complaint Chief Complaint: Resp - History obtained from History obtained from: Patient, Family - History of Present Illness Timing - onset: How many days ago (3) Timing - onset during: Light activity Timing - duration: Days (3) Timing - details: Gradual onset, Still present Inciting event(s): URI Improved by: Inhaler/neb Worsened by: Exertion, Coughing Associated symptoms: Cough, Wheezing, Bilateral edema Similar symptoms before: Diagnosis (COPD) Recently seen: Clinic - Additional information Additional information: 88-year-old male with history of atrial fibrillation on Coumadin has developed progressive exertional dyspnea over the past week and he has not had adequate relief with use of his inhaler.He does acknowledge a cough productive of clear sputum. Review of Systems Constitutional: denies: Fever Eyes: denies: Decreased vision Ears: denies: Ear pain Nose: denies: Congestion Throat: denies: Sore throat Cardiac: reports: Pedal edema. denies: Chest pain / pressure, Palpitations, Calf pain Respiratory: reports: Dyspnea, Cough, Wheezing GI: reports: Abdominal Pain, Constipation. denies: Nausea, Vomiting : denies: Dysuria, Frequency Skin: denies: Rash Musculoskeletal: reports: Extremity swelling. denies: Neck pain, Back pain, Extremity pain Neurologic: denies: Generalized weakness, Focal weakness, Numbness PD PAST MEDICAL HISTORY - Past Medical History Past Medical History: Yes Cardiovascular: Hypertension, Atrial fibrillation Respiratory: None Neuro: TIA Musculoskeletal: Osteoarthritis, Osteoporosis, Fatigue, Chronic back pain - Past Surgical History Past Surgical History: Yes Ortho: Hip replacement, Spine surgery - Present Medications Home Medications: Ambulatory Orders Medication Instructions Recorded Confirmed Bicalutamide 12/06/17 Cephalexin [Keflex] 500 mg PO TID #15 capsule 12/06/17 Leuprolide [Lupron] 7.5 mg IM 12/06/17 Lisinopril 12/06/17 Metronidazole [Flagyl] 500 mg PO BID #10 tablet 12/06/17 Ondansetron Odt [Zofran] 4 mg TL Q6H PRN #15 tablet 12/06/17 Senna [Senokot] 12/06/17 12/06/17 Simvastatin 12/06/17 Warfarin [Coumadin] 2.5 mg PO 1400 12/06/17 12/06/17 hydroCHLOROthiazide 25 mg PO 12/06/17 [Hydrochlorothiazide] Furosemide [Lasix] 40 mg PO DAILY #20 tablet 02/07/19 Potassium Chloride [K-Dur] 20 meq PO DAILY #10 tablet 02/07/19 - Allergies Allergies/Adverse Reactions: Allergies Allergy/AdvReac Type Severity Reaction Status Date / Time No Known Drug Allergies Allergy Verified 02/06/19 22:31 - Social History Does the pt smoke?: Yes Smoking Status: Current every day smoker Does the pt drink ETOH?: No Does the pt have substance abuse?: No - POLST Patient has POLST: Yes PD ED PE NORMAL - Vitals Vital signs reviewed: Yes (normal ) - General General: Alert and oriented X 3, Well developed/nourished, Other (mild resting tachypnea) - HEENT HEENT: Atraumatic, PERRL, EOMI - Neck Neck: Supple, no meningeal sign - Cardiac Cardiac: No murmur, Other (distant heart sounds) - Respiratory Respiratory: Other (resting tachypnea with fine scattered wheeze) - Abdomen Abdomen: Soft, Other (mild LLQ tendereness without garding or rebound. 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, No motor deficit, No sensory deficit, Normal speech Eye Opening: Spontaneous Motor: Obeys Commands Verbal: Oriented GCS Score: 15 - Psych Psych: Normal mood, Normal affect Results - Vitals Vitals: Vital Signs - 24 hr 02/06/19 02/06/19 02/06/19 22:25 22:45 23:42 Temperature 36.8 C Heart Rate 58 L 55 L 60 Respiratory 18 24 22 Rate Blood Pressure 126/61 128/78 O2 Saturation 97 92 02/07/19 02/07/19 02/07/19 01:00 01:30 02:00 Temperature Heart Rate 65 59 L 60 Respiratory 17 17 17 Rate Blood Pressure 148/80 H 141/69 H 139/88 H O2 Saturation 96 96 96 02/07/19 02/07/19 04:03 04:52 Temperature Heart Rate 56 L 61 Respiratory 17 17 Rate Blood Pressure 151/80 H 153/63 H O2 Saturation 94 96 Oxygen O2 Source Room air - Labs Labs: Laboratory Tests 02/06/19 02/06/19 02/06/19 22:49 22:49 22:49 WBC 12.1 H RBC 3.49 L Hgb 10.6 L Hct 33.0 L MCV 94.6 H MCH 30.4 MCHC 32.1 RDW 15.3 H Plt Count 201 MPV 9.5 Neut # (Auto) 10.7 H Lymph # (Auto) 0.6 L [place] # (Auto) 0.6 Eos # (Auto) 0.1 Baso # (Auto) 0.1 Absolute Nucleated RBC 0.00 Nucleated RBC % 0.0 PT INR Sodium 140 Potassium 3.5 Chloride 99 L Carbon Dioxide 32 Anion Gap 9.0 BUN 26 H Creatinine 1.1 Estimated GFR (MDRD) 63 L Glucose 161 H Calcium 9.0 Total Bilirubin 0.6 AST 23 ALT 16 Alkaline Phosphatase 73 Troponin I High Sens 31.8 H* B-Natriuretic Peptide Total Protein 7.4 Albumin 3.2 Globulin 4.2 Albumin/Globulin Ratio 0.8 L Lipase 39 02/06/19 02/06/19 22:49 23:30 WBC RBC Hgb Hct MCV MCH MCHC RDW Plt Count MPV Neut # (Auto) Lymph # (Auto) [place] # (Auto) Eos # (Auto) Baso # (Auto) Absolute Nucleated RBC Nucleated RBC % PT 30.8 H INR 2.9 H Sodium Potassium Chloride Carbon Dioxide Anion Gap BUN Creatinine Estimated GFR (MDRD) Glucose Calcium Total Bilirubin AST ALT Alkaline Phosphatase Troponin I High Sens B-Natriuretic Peptide 666 H Total Protein Albumin Globulin Albumin/Globulin Ratio Lipase - Rads (name of study) chest Radiology: Prelim report reviewed Procedures - IVC sono (time) 2320 Bedside IVC sono: IVC measures (cm) (3.16), High CVP, Fluid overload 0435 Bedside IVC sono: IVC measures (cm) (2.18), Euvolemia PD MEDICAL DECISION MAKING - ED course Complexity details: reviewed old records, reviewed results, re-evaluated patient, considered differential, d/w patient, d/w family ED course: 88 y/o male with acute soa has been using his inhaler without relief and today when he arrives to the ED he has trace edema and fine breath sounds. He is given a duo-neb treatment with some improvement and he is given decadron 10mg as well. His chest x-ray is concerning for failure and his IVC is interrogated with the bedside ultrasound and found to be plethoric and 3.18 cm in size. He is given IV lasix and begins to diurese and feels much improved. I believe his soa is related to CHF and not to an exacerbation of COPD. 6 1/2 HOURS into his visit his IVC has reduced in size to 2.18 and it does collapse with respiration. We will put him on some lasix and he will follow up with Dr. Lassiter. The patient reports dramatic improvement in his ability to breath. Departure - Departure Disposition: 01 Home, Self Care Clinical Impression: Moderate COPD (chronic obstructive pulmonary disease) Congestive heart failure Qualifiers: Heart failure type: unspecified Heart failure chronicity: acute Qualified Code(s): I50.9 - Heart failure, unspecified Condition: Stable Instructions: ED CHF General Follow-Up: Renan Lassiter DO [Primary Care Provider] - Prescriptions: Furosemide [Lasix] 40 mg PO DAILY #20 tablet Potassium Chloride [K-Dur] 20 meq PO DAILY #10 tablet Comments: Today it appears the difficulty you are having with your breathing is related to accumulation of fluid on your lungs. This will require some additional diuretic for the next several days. Take the 40 mg of Lasix and the 20 mEq potassium each morning. Follow-up with Dr. Lassiter in the next week. Discharge Date/Time: 02/07/19 05:36
[2019-02-06 23:46] LABS: INR 2.9 (0.8-1.2); PT - PROTHROMBIN TIME 30.8 secs (9.9-12.6)
[2019-02-07 04:52] VITALS: BP 153/63
== END 2019-02-07 05:36 | disposition home or self-care (01) ==
LOC: ED 22:24
DX: I11.0 Hypertensive heart disease with heart failure (principal); I50.9 Heart failure, unspecified; J44.9 Chronic obstructive pulmonary disease, unspecified; I48.91 Unspecified atrial fibrillation; Z79.01 Long term (current) use of anticoagulants; F17.200 Nicotine dependence, unspecified, uncomplicated
CPT/HCPCS: 36415; 71045; 80053; 83690; 83880; 84484; 85025; 85610; 94640; 96365; 96375; 99284

== ENCOUNTER 2019-02-25 08:00 | Outpatient (CLI) | payer MEDICARE, OTHER | END 2019-02-25 23:59 | disposition home or self-care (01) | LOC: LAB.WCP 08:00 | PROVIDERS: ATTEND Family Medicine | DX: I48.91 Unspecified atrial fibrillation (principal); Z79.01 Long term (current) use of anticoagulants ==

== ENCOUNTER 2019-02-28 11:21 | Outpatient (CLI) | payer MEDICARE, OTHER | END 2019-02-28 11:22 | disposition home or self-care (01) | LOC: DI 11:21 | PROVIDERS: ATTEND Family Medicine | DX: I35.0 Nonrheumatic aortic (valve) stenosis (principal); I27.20 Pulmonary hypertension, unspecified; I51.7 Cardiomegaly | CPT/HCPCS: 93306 ==

== ENCOUNTER 2019-03-25 08:00 | Outpatient (CLI) | payer MEDICARE, OTHER | END 2019-03-25 23:59 | disposition home or self-care (01) | LOC: LAB.WCP 08:00 | PROVIDERS: ATTEND Family Medicine | DX: Z79.01 Long term (current) use of anticoagulants (principal); I48.91 Unspecified atrial fibrillation ==

== ENCOUNTER 2019-03-27 08:00 | Outpatient (CLI) | payer MEDICARE, OTHER | END 2019-03-27 23:59 | disposition home or self-care (01) | LOC: LAB.WCP 08:00 | PROVIDERS: ATTEND Family Medicine | DX: Z79.01 Long term (current) use of anticoagulants (principal); I48.91 Unspecified atrial fibrillation ==

== ENCOUNTER 2019-03-29 08:00 | Outpatient (CLI) | payer MEDICARE, OTHER | END 2019-03-29 23:59 | disposition home or self-care (01) | LOC: LAB.WCP 08:00 | PROVIDERS: ATTEND Family Medicine | DX: Z79.01 Long term (current) use of anticoagulants (principal); I48.91 Unspecified atrial fibrillation ==

== ENCOUNTER 2019-04-05 08:00 | Outpatient (CLI) | payer MEDICARE, OTHER | END 2019-04-05 23:59 | disposition home or self-care (01) | LOC: LAB.WCP 08:00 | PROVIDERS: ATTEND Family Medicine | DX: Z79.01 Long term (current) use of anticoagulants (principal); I48.91 Unspecified atrial fibrillation ==

== ENCOUNTER 2019-04-22 08:00 | Outpatient (CLI) | payer MEDICARE, OTHER | END 2019-04-22 23:59 | disposition home or self-care (01) | LOC: LAB.WCP 08:00 | PROVIDERS: ATTEND Family Medicine | DX: Z79.01 Long term (current) use of anticoagulants (principal); I48.91 Unspecified atrial fibrillation ==

== ENCOUNTER 2019-05-02 08:00 | Outpatient (CLI) | payer MEDICARE, OTHER | END 2019-05-02 23:59 | disposition home or self-care (01) | LOC: LAB.WCP 08:00 | PROVIDERS: ATTEND Family Medicine | DX: Z79.01 Long term (current) use of anticoagulants (principal); I48.91 Unspecified atrial fibrillation ==

== ENCOUNTER 2019-05-16 08:00 | Outpatient (CLI) | payer MEDICARE, OTHER | END 2019-05-16 23:59 | disposition home or self-care (01) | LOC: LAB.WCP 08:00 | PROVIDERS: ATTEND Family Medicine | DX: I48.91 Unspecified atrial fibrillation (principal) ==

== ENCOUNTER 2019-05-30 08:00 | Outpatient (CLI) | payer MEDICARE, OTHER | END 2019-05-30 23:59 | disposition home or self-care (01) | LOC: LAB.WCP 08:00 | PROVIDERS: ATTEND Family Medicine | DX: Z79.01 Long term (current) use of anticoagulants (principal); I48.91 Unspecified atrial fibrillation ==

== ENCOUNTER 2019-06-06 10:14 | Outpatient (CLI) | payer MEDICARE, OTHER ==
[2019-06-06 18:41] LABS: BASOPHILS % (AUTO) 0.7 %; EOSINOPHILS # (AUTO) 0.1 10^3/uL (0.0-0.7); EOSINOPHILS % (AUTO) 1.5 %; HGB - HEMOGLOBIN 10.8 g/dL (14.0-18.0); LYMPHOCYTES # (AUTO) 0.9 10^3/uL (1.5-3.5); LYMPHOCYTES % (AUTO) 17.6 %; MEAN CORPUSCULAR HEMOGLOBIN 30.7 pg (27.0-31.0); MEAN CORPUSCULAR HGB CONC 30.8 g/dL (32.0-36.0); MEAN CORPUSCULAR VOLUME 99.7 fL (80.0-94.0); MEAN PLATELET VOLUME 11.5 fL (7.4-11.4); MONOCYTES # (AUTO) 0.6 10^3/uL (0.0-1.0); MONOCYTES % (AUTO) 11.2 %; NEUTROPHILS # (AUTO) 3.7 10^3/uL (1.5-6.6); NEUTROPHILS % (AUTO) 68.6 %; PLT - PLATELET COUNT 216 10^3/uL (130-450); RED BLOOD COUNT 3.52 10^6/uL (4.70-6.10); RED CELL DISTRIBUTION WIDTH 15.4 % (12.0-15.0); WHITE BLOOD COUNT 5.3 x10^3/uL (4.8-10.8)
[2019-06-06 18:46] LABS: HEMOGLOBIN A1C 0.48 g/dL; HEMOGLOBIN A1C % 6.1 % (4.6-6.2)
[2019-06-06 18:55] LABS: ALBUMIN 3.5 g/dL (3.2-5.5); ALBUMIN/GLOBULIN RATIO 0.7 (1.0-2.2); ALKALINE PHOSPHATASE 80 IU/L (42-121); ALT ALANINE AMINOTRANSFERASE 15 IU/L (10-60); AST ASPARTATE AMINOTRANSFERASE 26 IU/L (10-42); BILIRUBIN,TOTAL 0.5 mg/dL (0.2-1.0); BUN - BLOOD UREA NITROGEN 29 mg/dL (6-20); CALCIUM 9.4 mg/dL (8.5-10.3); CARBON DIOXIDE - CO2 27 mmol/L (21-32); CHLORIDE 102 mmol/L (101-111); CHOL/HDL RATIO 1.9 (<5.0); CHOLESTEROL 113 mg/dL; CREATININE 1.1 mg/dL (0.6-1.2); GFR - MDRD 63 (>89); GLUCOSE 97 mg/dL (70-100); HDL CHOLESTEROL 58 mg/dL; LDL CHOLESTEROL,CALCULATED 46 mg/dL; LDL/HDL RATIO 0.8 (<3.6); SODIUM 139 mmol/L (135-145); TOTAL PROTEIN 8.2 g/dL (6.7-8.2); VLDL CHOLESTEROL 9 mg/dL
== END 2019-06-06 23:59 | disposition home or self-care (01) ==
LOC: LAB.WCP 10:14
PROVIDERS: ATTEND Family Medicine
DX: I50.9 Heart failure, unspecified (principal); R73.9 Hyperglycemia, unspecified; E78.5 Hyperlipidemia, unspecified; I48.91 Unspecified atrial fibrillation; C61 Malignant neoplasm of prostate
CPT/HCPCS: 36415; 80053; 80061; 83036; 83721; 84153; 84443; 85025

== ENCOUNTER 2019-06-12 10:23 | Outpatient (CLI) | payer MEDICARE, OTHER ==
--- NOTE | 2019-06-12 17:54 | XRAY Report ---
Reason: RIGHT HIP PAIN Procedure Date: 06/12/2019 Accession Number: [id number] / [id number] Procedure: WCP - Hip 1 View RT CPT Code: Final Report FULL RESULT: EXAM: RIGHT HIP RADIOGRAPHY EXAM DATE: 06/12/2019 10:23 AM. CLINICAL HISTORY: RIGHT HIP PAIN. COMPARISON: WRIST 3 VIEW LT 08/14/2018 9:29 AM ABDOMEN/PELVIS W/ 01/15/2019 11:07 AM. TECHNIQUE: 3 views. FINDINGS: Bones: No fracture or focal bony lesion. Relative increased opacity over the iliac bones is likely secondary to overlying soft tissue. Joints: Status post right hip arthroplasty. No evidence of hardware dysfunction. No evidence of dislocation. Soft Tissues: There are vascular calcifications. There are pelvic surgical clips. IMPRESSION: There is no evidence of fracture, dislocation, or right hip hardware dysfunction. RADIA
== END 2019-06-12 23:59 | disposition home or self-care (01) ==
LOC: DI.WCP 10:23
PROVIDERS: ATTEND Family Medicine
DX: M25.551 Pain in right hip (principal)

== ENCOUNTER 2019-06-20 08:00 | Outpatient (CLI) | payer MEDICARE, OTHER | END 2019-06-20 23:59 | disposition home or self-care (01) | LOC: LAB.WCP 08:00 | PROVIDERS: ATTEND Family Medicine | DX: I48.91 Unspecified atrial fibrillation (principal); Z79.01 Long term (current) use of anticoagulants ==

== ENCOUNTER 2019-06-25 05:36 | Outpatient (CLI) | payer MEDICARE, OTHER | END 2019-06-25 05:37 | disposition critical access hospital (66) | LOC: EMS 05:36 | PROVIDERS: ATTEND Surgery | DX: R06.00 Dyspnea, unspecified (principal) | CPT/HCPCS: A0425; A0427 ==

== ENCOUNTER 2019-06-25 05:48 | Emergency (ER) | payer MEDICARE, OTHER ==
--- NOTE | 2019-06-25 06:05 | ED Physician Documentation ---
History of Present Illness - Stated complaint Stated Complaint: SOA - Additonal information Additional information: This is an 89-year-old male with a history of of COPD, severe pulmonary hypertension, and severe aortic stenosis with a valve area of 1.0 cm on 02/28/2019, who presents with shortness of breath. Patient states that typically when he gets shortness of breath he uses a nebulizer treatment and it improves, however he woke up at around 3 AM and was using his nebulizer but his breathing did not improve so EMS was called. They found him with increased work of breathing, as he was brought in to the emergency department. He denies a abdominal pain, chest pain, vomiting, or diaphoresis. He has had increasing exertional dyspnea. Review of Systems Constitutional: denies: Fever Ears: denies: Drainage/discharge Nose: denies: Rhinorrhea / runny nose Cardiac: denies: Chest pain / pressure Respiratory: reports: Dyspnea GI: denies: Vomiting Skin: denies: Rash Neurologic: denies: Focal weakness Endocrine: denies: Easy bruising / bleeding Immunocompromised: denies: Chemotherapy PD PAST MEDICAL HISTORY - Past Medical History Cardiovascular: Hypertension, Atrial fibrillation Respiratory: None Neuro: TIA Musculoskeletal: Osteoarthritis, Osteoporosis, Fatigue, Chronic back pain - Past Surgical History Past Surgical History: Yes Ortho: Hip replacement, Spine surgery - Present Medications Home Medications: Ambulatory Orders Medication Instructions Recorded Confirmed Leuprolide [Lupron] 7.5 mg IM PRN PRN 12/06/17 06/25/19 Senna [Senokot] 2 tab PO DAILY PM 12/06/17 06/25/19 Warfarin [Coumadin] 2.5 mg PO DAILY 12/06/17 06/25/19 lisinopriL [Lisinopril] 20 mg PO DAILY PM 12/06/17 06/25/19 Furosemide [Lasix] 40 mg PO DAILY #20 tablet 02/07/19 06/25/19 Budesonide 0.5 mg IH PRN PRN 06/25/19 06/25/19 Ipratropium/Albuterol [Duoneb] 3 ml INH PRN PRN 06/25/19 06/25/19 Simvastatin 40 mg PO DAILY PM 06/25/19 06/25/19 Spironolactone 50 mg PO DAILY 06/25/19 06/25/19 carvediloL [Carvedilol] 12.5 mg PO DAILY 06/25/19 06/25/19 - Allergies Allergies/Adverse Reactions: Allergies Allergy/AdvReac Type Severity Reaction Status Date / Time No Known Drug Allergies Allergy Verified 06/25/19 05:57 - Social History Does the pt smoke?: Yes Smoking Status: Current every day smoker Does the pt drink ETOH?: No Does the pt have substance abuse?: No - POLST Patient has POLST: Yes PD ED PE NORMAL - Vitals Vital signs reviewed: Yes - General General: Alert and oriented X 3 - HEENT HEENT: No: Atraumatic - Cardiac Cardiac: Other (4 out of 6 systolic ejection murmur, rate is generally regular though with irregular beats present.) - Respiratory Respiratory: Other (Diffuse and expiratory wheeze, he also has some bibasilar crackles.) - Abdomen Abdomen: Soft, Non tender - Extremities Extremities: No deformity - Neuro Neuro: Alert and oriented X 3, No motor deficit, No sensory deficit, Normal speech - Psych Psych: Normal mood, Normal affect Results - Vitals Vitals: Oxygen O2 Source Nasal cannula Oxygen Flow Rate 2 - EKG (time done) 6:02 Other comments: Other comments (Rate 92, rhythm atrial fibrillation, there is a right bundle branch block, there are several PVCs. There is no convincing ST segment elevation or depression.) 8:37 Other comments: Other comments (Rate 67, rhythm atrial fibrillation with a right bundle branch block. There is no convincing ST segment elevation or depression. T waves inverted in 3 and aVF, unchanged from EKG prior in the day.) - Labs Labs: Laboratory Tests 06/25/19 06/25/19 06/25/19 06:15 06:15 06:15 WBC 6.8 RBC 3.48 L Hgb 10.5 L Hct 34.1 L MCV 98.0 H MCH 30.2 MCHC 30.8 L RDW 14.6 Plt Count 239 MPV 10.0 Neut # (Auto) 5.5 Lymph # (Auto) 0.6 L [place] # (Auto) 0.5 Eos # (Auto) 0.1 Baso # (Auto) 0.0 Absolute Nucleated RBC 0.00 Nucleated RBC % 0.0 PT 20.5 H INR 1.9 H Sodium 140 Potassium 3.6 Chloride 101 Carbon Dioxide 28 Anion Gap 11.0 BUN 24 H Creatinine 0.9 Estimated GFR (MDRD) 80 L Glucose 124 H Calcium 8.9 Total Bilirubin 0.8 AST 29 ALT 17 Alkaline Phosphatase 90 Troponin I High Sens B-Natriuretic Peptide Total Protein 7.7 Albumin 3.3 Globulin 4.3 H Albumin/Globulin Ratio 0.8 L Lipase 32 06/25/19 06/25/19 06/25/19 06:15 06:15 08:15 WBC RBC Hgb Hct MCV MCH MCHC RDW Plt Count MPV Neut # (Auto) Lymph # (Auto) [place] # (Auto) Eos # (Auto) Baso # (Auto) Absolute Nucleated RBC Nucleated RBC % PT INR Sodium Potassium Chloride Carbon Dioxide Anion Gap BUN Creatinine Estimated GFR (MDRD) Glucose Calcium Total Bilirubin AST ALT Alkaline Phosphatase Troponin I High Sens 33.1 H* 37.6 H* B-Natriuretic Peptide 478 H Total Protein Albumin Globulin Albumin/Globulin Ratio Lipase - Rads (name of study) CXR Radiology: Other (Cardiomegaly and pulmonary vascular congestion with possible trace interstitial edema, small left pleural effusion. Left basilar atelectasis versus consolidation.) PD MEDICAL DECISION MAKING - ED course Complexity details: considered differential (COPD, HF, aortic stenosis, ME, ACS, electrolyte abnormality, dysrhythmia) ED course: On arrival patient has increased work of breathing, he is tachycardic, and appears to be hypoxic however we have a very poor [place] and the initial recorded value of 69% was recorded when there was a poor waveform, so I doubt this is accurate. On nasal cannula and after warming his fingers to his oxygen saturation is in the 90s, though he is still tachypneic and has bibasilar crackles. X-ray shows pulmonary congestion. He does not have a white count, no fever, no signs of pneumonia or infection at this time. Repeat EKG continues to show right bundle branch block with no changes from prior. 2 HS troponins are slightly elevated but near his baseline in the 30s and not significantly uptrending. He is having no chest pain. I did give him a dose of Lasix here, and he had good urine output and appeared to have improvement of his breathing with this. With the severity of his aortic stenosis he is quite preload dependent and any other intervention that would potentially drop his preload was avoided. Pt sees Dr Cao of cardiology. Speaking with patient and his Celina, he has had discussions with Dr. Haider about his aortic stenosis, and he has declined establishing with the cardiology team at [facility] to discuss further intervention. I discussed with patient that he appeared to have heart failure and that the aortic stenosis is likely a significant emergency medical technician/driver of this. He has dyspnea on exertion, and after speak with cardiology team It sounds like his life expectancy without intervention is quite low. He understands my concern, but Initially was not interested in being transferred to [facility]. I discussed that he could have worsening including syncope, heart failure leading to respiratory failure or , he is well aware of these risks. His arrived and after speaking with the patient he was agreeable to transfer to [facility] if deemed appropriate. Patient was signed out to Dr. Mesa with the plan to consult with the [facility] cardiology, and transfer there if appropriate. He continues to have mild tachypnea, but an oxygen saturation in the mid 90s on room air, he is chest pain-free, and is feeling improved from his arrival. Departure - Departure Disposition: 02 Transfer Acute Care Hosp Clinical Impression: CHF (congestive heart failure) Qualifiers: Heart failure type: unspecified Heart failure chronicity: acute Qualified Code(s): I50.9 - Heart failure, unspecified Dyspnea Qualifiers: Dyspnea type: dyspnea on exertion Qualified Code(s): R06.09 - Other forms of dyspnea Aortic stenosis Qualifiers: Cardiac valve disease etiology: etiology unspecified Qualified Code(s): I35.0 - Nonrheumatic aortic (valve) stenosis Discharge Date/Time: 06/25/19 16:00
[2019-06-25 06:20] LABS: BASOPHILS % (AUTO) 0.6 %; EOSINOPHILS # (AUTO) 0.1 10^3/uL (0.0-0.7); EOSINOPHILS % (AUTO) 0.9 %; HGB - HEMOGLOBIN 10.5 g/dL (14.0-18.0); LYMPHOCYTES # (AUTO) 0.6 10^3/uL (1.5-3.5); LYMPHOCYTES % (AUTO) 9.3 %; MEAN CORPUSCULAR HEMOGLOBIN 30.2 pg (27.0-31.0); MEAN CORPUSCULAR HGB CONC 30.8 g/dL (32.0-36.0); MONOCYTES # (AUTO) 0.5 10^3/uL (0.0-1.0); MONOCYTES % (AUTO) 7.4 %; NEUTROPHILS # (AUTO) 5.5 10^3/uL (1.5-6.6); NEUTROPHILS % (AUTO) 81.2 %; PLT - PLATELET COUNT 239 10^3/uL (130-450); RED BLOOD COUNT 3.48 10^6/uL (4.70-6.10); RED CELL DISTRIBUTION WIDTH 14.6 % (12.0-15.0); WHITE BLOOD COUNT 6.8 x10^3/uL (4.8-10.8)
[2019-06-25 06:26] LABS: INR 1.9 (0.8-1.2); PT - PROTHROMBIN TIME 20.5 secs (9.9-12.6)
[2019-06-25 06:34] LABS: ALBUMIN 3.3 g/dL (3.2-5.5); ALBUMIN/GLOBULIN RATIO 0.8 (1.0-2.2); BILIRUBIN,TOTAL 0.8 mg/dL (0.2-1.0); CALCIUM 8.9 mg/dL (8.5-10.3); CREATININE 0.9 mg/dL (0.6-1.2); TOTAL PROTEIN 7.7 g/dL (6.7-8.2)
--- NOTE | 2019-06-25 06:41 | XRAY Report ---
Reason: SOB, hx heart failure, COPD Procedure Date: 06/25/2019 Accession Number: [id number] / [id number] Procedure: XR - Chest 1 View X-Ray CPT Code: 46919 Final Report FULL RESULT: EXAM: CHEST RADIOGRAPHY EXAM DATE: 06/25/2019 06:28 AM. CLINICAL HISTORY: Shortness of breath. History of congestive heart failure and COPD. COMPARISON: CHEST 1 VIEW 02/06/2019 10:34 PM. TECHNIQUE: 1 view. FINDINGS: Lungs/Pleura: Pulmonary vascular congestion. Possible trace interstitial edema. Left basilar atelectasis or consolidation. Small left pleural effusion. No pneumothorax. Mediastinum: Stable cardiomegaly. Aortic atherosclerosis. Other: Degenerative changes and rotator cuff atrophy in the shoulders. Old right rib fractures. IMPRESSION: 1. Cardiomegaly and pulmonary vascular congestion with possible trace interstitial edema. 2. Left basilar atelectasis or consolidation with small left pleural effusion. RADIA
[2019-06-25] MEDS ORDERED: FUROSEMIDE 40 MG/4 ML VIAL IVP STA (07:07)
[2019-06-25 15:52] VITALS: BP 170/84
--- NOTE | 2019-06-25 19:21 | ED Physician Documentation ---
ED Addendum - Addendum Addendum: 06/25/19 19:16 Seen the patient in handoff from the prior ER physician. The patient is feeling more comfortable now having received some treatments. He was presenting with dyspnea and apparent CHF. This seems related to his aortic stenosis. Pending was consultation with cardiology for transfer for evaluation of possible [facility]. I did talk with the Dr. Powers she was on for cardiology and he was accepting the patient in transfer for evaluation. The did not have beds immediately available but would call us in a couple of hours. They did subsequently call us and approved transfer with a bed assignment the patient was transferred without any complications via [facility]. Condition on transfer stable Disposition transfer to cardiology Discharge diagnosis acute episode of CHF #2 dyspnea #3 critical aortic stenosis
== END 2019-06-25 16:00 | disposition short-term general hospital (02) ==
LOC: EDUNIT# → ED 05:48
DX: I50.9 Heart failure, unspecified (principal); I35.0 Nonrheumatic aortic (valve) stenosis; I10 Essential (primary) hypertension; F17.210 Nicotine dependence, cigarettes, uncomplicated
CPT/HCPCS: 36415; 71045; 80053; 83690; 83880; 84484; 85025; 85610; 93005; 96374; 99284

== ENCOUNTER 2019-06-25 16:05 | Outpatient (CLI) | payer MEDICARE, OTHER | END 2019-06-25 16:06 | disposition short-term general hospital (02) | LOC: EMS 16:05 | PROVIDERS: ATTEND Surgery | DX: I50.9 Heart failure, unspecified (principal); R06.00 Dyspnea, unspecified | CPT/HCPCS: A0425; A0427; A0428 ==